=== PATIENT | male | born 1995 | race Two or more races ===

== ENCOUNTER 2018-04-26 20:39 | Emergency (ER) | payer MEDICAID ==
--- NOTE | 2018-04-26 20:45 | EDPHY ---
H & P Time Seen by Provider: 04/26/18 20:45 HPI/ROS: CHIEF COMPLAINT: Right ankle pain HISTORY OF PRESENT ILLNESS: 22-year-old male via private vehicle complaining of acute right lateral ankle pain which occurred approximately 2:00 p.m. today when he was playing basketball, landed and rolled his foot. He is able to bear weight albeit with pain. Ecchymosis to the lateral ankle and foot noted. No foot pain. No 5th metatarsal pain. No paresthesia. No proximal tibia or fibula pain. No calcaneus pain. No near pelvic pain. No back pain PHYSICAL EXAM (Prior to examination, patient consented to physical exam, hands were washed and my usual and customary physical exam procedures followed) 1) GENERAL: Well-developed, well-nourished, alert and oriented. Appears to be in no acute distress. 2) HEAD: Normocephalic 3) HEENT: Pupils equal, round, reactive to light bilaterally. 4) LUNGS: Breathing comfortably. 5) MUSCULOSKELETAL: Ecchymosis to the lateral ankle. proximal tibia and fibula nontender .5th MT nontender negative Arana test, compartments soft 6) SKIN: Intact 7) VASCULAR: DP,PT pulses and cap refill present and brisk DIFFERENTIAL DIAGNOSIS: in no particular order including but not limited to fracture, sprain, compartment syndrome Recommended crutches and Jose boot however patient declines these stating that he has these at home. Smoking Status: Never smoked Constitutional: Initial Vital Signs Temperature (C) 36.4 C 04/26/18 20:42 Heart Rate 79 04/26/18 20:42 Respiratory Rate 16 04/26/18 20:42 Blood Pressure 151/88 H 04/26/18 20:42 O2 Sat (%) 96 04/26/18 20:42 O2 Delivery Mode Room Air Allergies/Adverse Reactions: No Known Allergies Allergy (Unverified 06/08/10 07:55) Home Medications: Medication Instructions Recorded NO HOME MEDS 06/06/10 MDM/Departure - MDM Imaging Results: Imaging Impressions Ankle X-Ray 04/26/18 20:52 Impression: 1. Small avulsion type fracture distal tip of the fibula with moderate soft tissue swelling laterally. 2. Possible chip fractures adjacent to the distal tip of the medial malleolus. Images reviewed myself ED Course/Re-evaluation: Re-evaluation with serial exams most recent 9:10 p.m.. Soft compartments. Neurovascular intact. Given my usual and customary orthopedic precautions and instructions. He feels comfortable being discharged. Recommend orthopedic follow-up. I saw this patient independently based on established practice protocols. Care of patient under supervision of secondary supervising physician Dr Villafuerte . - Depart Disposition: Home, Routine, Self-Care Clinical Impression: Closed right ankle fracture Qualifiers: Encounter type: initial encounter Qualified Code(s): S82.891A - Other fracture of right lower leg, initial encounter for closed fracture Condition: Good Instructions: Ankle Fracture (ED) Additional Instructions: Return to the ER immediately if you experience discoloration, have worsening pain, numbness, tingling, or any other symptoms that concern you. If you received x-rays in the emergency department today, be advised, that ligamentous , tendon, muscular, and other non-bony injury cannot be fully ruled out. Try to keep your affected extremity elevated above the level of your chest, and keep cold packs on the affected area, for the next 48 hours. Referrals: Tico Avilez MD [Medical Doctor] - 5-7 days, call for appt.
[2018-04-26 21:40] VITALS: BP 149/95
== END 2018-04-26 21:30 | disposition home or self-care (01) ==
DX: S82.891A Other fracture of right lower leg, initial encounter for closed fracture (principal); Y99.8 Other external cause status; Y93.67 Activity, basketball

== ENCOUNTER 2018-07-02 19:39 | Emergency (ER) | payer MEDICAID, OTHER ==
[2018-07-02 19:50] VITALS: BP 154/97
--- NOTE | 2018-07-02 19:54 | EDPHY ---
H & P Smoking Status: Never smoked Time Seen by Provider: 07/02/18 19:53 HPI/ROS: CHIEF COMPLAINT: Medial ankle pain HISTORY OF PRESENT ILLNESS: 22-year-old male here with medial incomplete the last 3 days. States he was at work knee leaned backwards and twisted and felt a popping sensation in his right medial ankle. States he has been able to bear weight since but this is painful. Denies any loss of range of motion or numbness. He has tried [id number] Tylenol and Motrin for pain with moderate relief of pain. ROS As detailed in HPI (Romel Lares) Physical Exam: General: Alert and oriented. Nontoxic appearing. No acute distress HEENT: Pupils PERRLA. No oral lesions. Cardiopulmonary: Regular rate and rhythm. No lower extremity edema Skin: [place] warm and dry. No lesions. Muscle skeletal: Moving all 4 extremities. Equal strength in upper extremities and lower extremities. Ambulatory. No tenderness over the medial or lateral malleolus. Tenderness over the posterior medial aspect of the deltoid ligament of the right ankle. (Romel Lares) Constitutional: Initial Vital Signs Temperature (C) 36.9 C 07/02/18 19:49 Heart Rate 74 07/02/18 19:49 Respiratory Rate 16 07/02/18 19:49 Blood Pressure 154/97 H 07/02/18 19:49 O2 Sat (%) 94 07/02/18 19:49 O2 Delivery Mode Room Air Allergies/Adverse Reactions: No Known Allergies Allergy (Unverified 06/08/10 07:55) Home Medications: Medication Instructions Recorded NO HOME MEDS 06/06/10 Medical Decision Making ED Course/Re-evaluation: 22-year-old male here with medial ankle pain. X-ray reveals no acute bony per process. Does show had cold ulcer fractures of the medial and lateral malleolus. He has no tenderness over the medial or lateral malleolus and has these have been seen on prior x-ray do not believe these are acute fractures. He was however placed in a splint and will follow up with Orthopedics as he has medial ligamentous tenderness and possibly has an unstable ankle. (Romel Lares) I did not see this patient while he was in the emergency department. However his care was discussed with the PA while the patient was in the department. I agree with treatment plan and management (Kemar Kennedy) Differential Diagnosis: Fracture, dislocation, ligamentous instability, compartment syndrome (Romel Lares) Departure - Departure Disposition: Home, Routine, Self-Care Clinical Impression: Sprain involving medial aspect of ankle Condition: Good Instructions: Ankle Sprain (ED) Additional Instructions: Follow-up with Orthopedics in the next week for further evaluation. Activities as tolerated. Weightbearing as tolerated. Referrals: Patient,NotPresent [Unknown] - As per Instructions Ford Gutierrez MD [Medical Doctor] - As per Instructions
== END 2018-07-02 20:37 | disposition home or self-care (01) ==
DX: S93.401A Sprain of unspecified ligament of right ankle, initial encounter (principal); X50.0XXA Overexertion from strenuous movement or load, initial encounter; Y99.0 Civilian activity done for income or pay